=== PATIENT | male | born 2000 | race Caucasian/White ===

== ENCOUNTER 2020-08-23 06:51 | Emergency (ER) | payer SELFPAY ==
[2020-08-23] MEDS ORDERED: ZYRTEC10 M3 PO (07:10)
== END 2020-08-23 07:17 | disposition home or self-care (01) ==
LOC: FER 06:51
DX: J30.9 Allergic rhinitis, unspecified (principal); Z88.0 Allergy status to penicillin
CPT/HCPCS: 99283